=== PATIENT | female | born 1960 | race Caucasian/White ===

== ENCOUNTER 2016-06-19 12:54 | Emergency (ER) | payer OTHER ==
[~2016-06-19] VITALS: Ht 160 cm; Wt 47.5 kg
[~2016-06-19 12:54] MED LIST: ACET650S10; NAPR1TAB9 PO
[2016-06-19 12:57] VITALS: TEMP 36.4; Ht 160 cm; Wt 47.5 kg
[2016-06-19] MEDS ORDERED: CALC8.5C PO (13:20)
[2016-06-19 13:50] LABS: HEMATOCRIT 39.4 % (37-47); MEAN CELL VOLUME 90.2 fL (80-100); MEAN CORPUSCULAR HGB CONC 33.2 g/dl (32-36); MEAN PLATELET VOLUME 12.3 fL (7.4-10.4); PLATELET COUNT 335 K/uL (130-400); RED BLOOD COUNT 4.37 M/uL (4.2-5.4)
--- NOTE | 2016-06-19 13:58 | DIAGNOSTIC IMAGING REPORT ---
CHEST ONE VIEW PORTABLE CLINICAL HISTORY: chest pain left side COMPARISON STUDY: No previous studies for comparison. FINDINGS: The cardiac and mediastinal contours are normal. There is no evidence of focal pulmonary consolidation. There is no evidence of failure. No pleural effusions are visualized.[ No pneumothorax is visualized IMPRESSION: No active disease in the chest. Electronically signed by: Lonnie Davies M.D. 06/19/2016 1:57 PM Dictated Date/Time: 06/19/2016 1:56 PM
[2016-06-19 14:00] LABS: BUN/CREATININE RATIO 18.5 (10-20); CALCIUM 9.3 mg/dl (8.5-10.1); CREATININE 0.84 mg/dl (0.60-1.20); PARTIAL THROMBOPLASTIN RATIO 1.1; POTASSIUM 3.7 mmol/L (3.5-5.1); PROTHROMBIN TIME (PATIENT) 10.5 SECONDS (9.0-12.0)
[2016-06-19 14:04] LABS: CKMB/CK RATIO 1.3 (0-3.0)
--- NOTE | 2016-06-19 14:15 | EMERGENCY ROOM VISIT NOTE ---
History Report prepared by Tiffanie: Nhi Kothari Under the Supervision of: Dr. Bernadette Guallpa M.D. First contact with patient: 13:58 Chief Complaint: CARDIAC ASSESSMENT Stated Complaint: DISCOMFORT IN LEFT CHEST AREA, COMES AND GOES Nursing Triage Summary: Triage note: pt reports for the past week she has had intermittent left chest pain. pt denies any shortness of breath, nausea or vomitting. pt denies any pain at this time. History of Present Illness The patient is a 55 year old female who presents to the Emergency Room with complaints of intermittent left sided chest pain starting 1 week ago. She describes the pain and a dull pressure. She does not have any pain with deep breaths or exertion. She denies and cough or fever. A couple weeks ago she had an episode of abdominal pain which left her in bed for 3 days. She has had it before and attributes it to eating too much. The pain resolved on its own. She has been taking Aleve often for joint pain. She stopped taking it when she got her abdominal pain. She has a history of neck retrolisthesis and osteoarthritis in the hands. She had a polyp removed from her colon in the past. She denies any family history of blood clots. She has a family history of hypertension. She tries to exercise daily and eat healthy. Source of History: patient Onset: 1 week ago Position: chest (left) Quality: pressure, dull Timing: intermittent Associated Symptoms: + abdominal pain, No cough, No fevers Review of Systems See HPI for pertinent positives & negatives. A total of 10 systems reviewed and were otherwise negative. Past Medical & Surgical Medical Problems: (1) Osteoarthritis (2) Retrolisthesis Family History Hypertension Social History Smoking Status: Never Smoker Marital Status: Housing Status: lives with significant other Occupation Status: retired Current/Historical Medications Scheduled Calcium W/ Vitamins D & K (Viactiv), 1 TAB PO BID Omeprazole (Prilosec), 20 MG PO DAILY Allergies Coded Allergies: No Known Allergies (Unverified , 06/19/16) Physical Exam Vital Signs Date Time Temp Pulse Resp B/P Pulse Ox O2 Delivery O2 Flow Rate FiO2 06/19/16 16:25 69 16 120/64 95 06/19/16 15:34 65 18 141/65 98 Room Air 06/19/16 15:14 65 100 Room Air 06/19/16 14:00 77 20 132/69 99 Room Air 06/19/16 13:29 81 06/19/16 12:57 36.4 70 18 140/76 99 Room Air Physical Exam Vital signs reviewed. General: Well-appearing, in no significant distress. HEENT: No scleral icterus, PERRLA, neck supple. Atraumatic. Cardiovascular: Regular rate and rhythm, no extra sounds. Pulmonary: Clear to auscultation bilaterally, normal work of breathing. Abdomen: Soft, nontender, nondistended, positive bowel sounds. Musculoskeletal: Atraumatic, no peripheral edema. Neurologic: Patient awake alert and oriented x 3, full strength in all 4 extremities. Cranial nerves 2 through 12 grossly intact. Skin: Warm, dry, no rash Medical Decision & Procedures ER Provider Diagnostic Interpretation: X-ray results as stated below per interpretation by me and the radiologist: CHEST ONE VIEW PORTABLE CLINICAL HISTORY: chest pain left side COMPARISON STUDY: No previous studies for comparison. FINDINGS: The cardiac and mediastinal contours are normal. There is no evidence of focal pulmonary consolidation. There is no evidence of failure. No pleural effusions are visualized.[ No pneumothorax is visualized IMPRESSION: No active disease in the chest. Electronically signed by: Lonnie Davies M.D. 06/19/2016 1:57 PM Dictated Date/Time: 06/19/2016 1:56 PM Laboratory Results 06/19/16 13:11 06/19/16 13:11 Test 06/19/16 13:11 06/19/16 15:13 Red Blood Count 4.37 M/uL (4.2-5.4) Mean Corpuscular Volume 90.2 fL (80-100) Mean Corpuscular Hemoglobin 30.0 pg (25-34) Mean Corpuscular Hemoglobin Concent 33.2 g/dl (32-36) RDW Standard Deviation 42.1 fL (36.4-46.3) RDW Coefficient of Variation 12.8 % (11.5-14.5) Mean Platelet Volume 12.3 fL (7.4-10.4) Prothrombin Time 10.5 SECONDS (9.0-12.0) Prothromb Time International Ratio 1.0 (0.9-1.1) Activated Partial Thromboplast Time 29.8 SECONDS (21.0-31.0) Partial Thromboplastin Ratio 1.1 D-Dimer < 190 ug/L FEU (0-500) Anion Gap 9.0 mmol/L (3-11) Est Creatinine Clear Calc Drug Dose 56.1 ml/min Estimated GFR () 90.0 Estimated GFR (Non- 77.7 BUN/Creatinine Ratio 18.5 (10-20) Calcium Level 9.3 mg/dl (8.5-10.1) Total Bilirubin 0.6 mg/dl (0.2-1) Aspartate Amino Transf (AST/SGOT) 16 U/L (15-37) Alanine Aminotransferase (ALT/SGPT) 24 U/L (12-78) Alkaline Phosphatase 71 U/L (45-117) Total Creatine Kinase 56 U/L (26-192) Creatine Kinase MB 0.7 ng/ml (0.5-3.6) Creatine Kinase MB Ratio 1.3 (0-3.0) Total Protein 8.2 gm/dl (6.4-8.2) Albumin 4.1 gm/dl (3.4-5.0) Globulin 4.1 gm/dl (2.5-4.0) Albumin/Globulin Ratio 1.0 (0.9-2) Bedside Troponin I 0.000 ng/ml (0-0.045) Laboratory results per my review. ECG Indication: chest pain Rate (beats per minute): 70 Rhythm: normal sinus (with sinus arrhythmia) Findings: no acute ischemic change, no ectopy ED Course 1402: Past medical records reviewed. The patient was evaluated in room A12B. A complete history and physical examination was performed. 1550: Upon reevaluation, the patient appeared to have improvement of her symptoms. I discussed findings with her. She verbalized agreement of the treatment plan. She was discharged home. Medical Decision Differential diagnosis: Acute coronary syndrome, pulmonary embolus, aortic dissection, musculoskeletal pain, pneumonia, pleural effusion, pneumothorax This patient was evaluated and appeared to be in no significant distress. IV access was obtained and laboratory work was drawn. The patient was placed to the guest services representative and found to be in a normal sinus rhythm. Laboratory work reveals negative cardiac enzymes. D-dimer was obtained and is negative. The patient was not given aspirin as she thinks in retrospect that the symptoms began after taking a course of Aleve for several months. She did stop the medications when symptoms develop. The patient was given a prescription for Prilosec 20 mg daily for the next 4 weeks. She was advised to avoid aspirin, Aleve, ibuprofen. She will follow-up with her physician within the next 1-2 weeks for reevaluation return to the ER for worsening of symptoms or any medical concerns. Impression Primary Impression: Gastritis Additional Impression: Atypical chest pain Scribe Attestation The scribe's documentation has been prepared under my direction and personally reviewed by me in its entirety. I confirm that the note above accurately reflects all work, treatment, procedures, and medical decision making performed by me. Departure Information Dispostion Home / Self-Care Prescriptions Omeprazole (PRILOSEC) 20 Mg Capcr 20 MG PO DAILY, #30 CAP Prov: Bernadette Guallpa M.D. 06/19/16 Referrals Hannah Hayden M.D. (PCP) Forms IMPORTANT VISIT INFORMATION Patient Instructions My [facility] Additional Instructions Diagnosis: Atypical chest pain: Gastritis Prilosec 20 mg daily for 4 weeks. Limit alcohol, soda, coffee, greasy and spicy foods. Avoid NSAIDs such as aspirin, Aleve, ibuprofen Drink plenty of clear fluids. Follow-up with your physician this week for reevaluation. Return to the ER for worsening of symptoms or any medical concerns. Problem Qualifiers
[2016-06-19] MEDS ORDERED: PRLSR20 PO (15:42)
[2016-06-19 16:25] VITALS: BP 120/64; PULSE 69; O2SAT 95
== END 2016-06-19 16:27 | disposition home or self-care (01) ==
LOC: C.EDB 12:55 → C.EDA 16:27
DX: K29.70 Gastritis, unspecified, without bleeding (principal); R07.89 Other chest pain; M19.90 Unspecified osteoarthritis, unspecified site; Z82.49 Family history of ischemic heart disease and other diseases of the circulatory system

== ENCOUNTER → 2016-06-20 | Outpatient (CLI) | payer OTHER ==
[~2016-06-20] MED LIST changes: -ACET650S10; +CALC8.5C PO; -NAPR1TAB9 PO; +PRLSR20 PO
== END | disposition home or self-care (01) ==
LOC: C.PAPS 17:43
PROVIDERS: ATTEND Obstetrics & Gynecology
DX: Z01.419 Encounter for gynecological examination (general) (routine) without abnormal findings (principal)

== ENCOUNTER → 2016-07-26 | Outpatient (CLI) | payer OTHER ==
--- NOTE | 2016-07-27 08:20 | MAMMOGRAPHY REPORT ---
BILATERAL DIGITAL SCREENING MAMMOGRAM TOMOSYNTHESIS WITH CAD: 07/26/2016 CLINICAL HISTORY: Routine screening. Patient has no complaints. TECHNIQUE: Breast tomosynthesis in addition to standard 2D mammography was performed. Current study was also evaluated with a Computer Aided Detection (CAD) system. COMPARISON: Comparison is made to exams dated: 12/03/2014 mammogram, 11/18/2013 mammogram, and 013 mammogram. BREAST COMPOSITION: The tissue of both breasts is heterogeneously dense, which may obscure small mas ses. FINDINGS: The parenchymal pattern is unchanged. No developing mass, architectural distortion or clus ter of suspicious microcalcifications is seen in either breast. IMPRESSION: ACR BI-RADS CATEGORY 2: BENIGN There is no mammographic evidence of malignancy. A 1 year screening mammogram is recommended. The pa tient will receive written notification of the results. Approximately 10% of breast cancers are not detected with mammography. A negative mammographic report should not delay biopsy if a clinically suggestive mass is present. Justine Hinton M.D. ay/:07/26/2016 15:56:32 Unloader: Arline Alonso RT(R)(M), [facility] letter sent: Normal 1/2 BI-RADS Code: ACR BI-RADS Category 2: Benign
== END | disposition home or self-care (01) ==
LOC: C.MAMM 14:31
PROVIDERS: ATTEND Obstetrics & Gynecology
DX: Z12.31 Encounter for screening mammogram for malignant neoplasm of breast (principal)

== ENCOUNTER → 2016-10-13 | Outpatient (CLI) | payer OTHER | END | disposition home or self-care (01) | LOC: C.MAMM 13:43 | PROVIDERS: ATTEND Internal Medicine | DX: R29.890 Loss of height (principal); M85.89 Other specified disorders of bone density and structure, multiple sites ==

== ENCOUNTER → 2017-08-31 | Outpatient (CLI) | payer OTHER ==
[~2017-08-31] MED LIST changes: -PRLSR20 PO
--- NOTE | 2017-08-31 16:06 | MAMMOGRAPHY REPORT ---
BILATERAL DIGITAL SCREENING MAMMOGRAM TOMOSYNTHESIS WITH CAD: 08/31/2017 CLINICAL HISTORY: Routine screening. Patient has no complaints. TECHNIQUE: The study was acquired using full field digital technology and interpreted from soft copy. Breast tomosynthesis in addition to standard 2D mammography was performed. Current study was also ev aluated with a Computer Aided Detection (CAD) system. COMPARISON: Comparison is made to exams dated: 07/26/2016 mammogram - [facility], 1 mammogram, 11/18/2013 mammogram, and 11/15/2012 mammogram. BREAST COMPOSITION: The tissue of both breasts is heterogeneously dense, which may obscure small mass es. FINDINGS: No suspicious masses, calcifications, or areas of architectural distortion are noted in either breast . There has been no significant interval change compared to prior exams. IMPRESSION: ACR BI-RADS CATEGORY 1: NEGATIVE There is no mammographic evidence of malignancy. A 1 year screening mammogram is recommended.( 019) The patient will receive written notification of the results. Some breast cancers are not detected with mammography. A negative mammographic report should not antoinette y biopsy if a clinically suggestive mass is present. Re Dickens M.D. ah/:08/31/2017 15:11:20 Educational Therapy Teacher: RT Cj(R)(M), [facility] letter sent: Normal 1/2 BI-RADS Code: ACR BI-RADS Category 1: Negative
== END | disposition home or self-care (01) ==
LOC: C.MAMM 12:19
PROVIDERS: ATTEND Obstetrics & Gynecology
DX: Z12.31 Encounter for screening mammogram for malignant neoplasm of breast (principal)